=== PATIENT | male | born 1995 | race Caucasian/White ===

== ENCOUNTER 2023-06-13 18:48 | Emergency (ER) | payer OTHER, SELFPAY ==
--- NOTE | 2023-06-13 18:49 | ED_ITS ---
HPI - URI/Sore Throat General Chief Complaint: Upper Respiratory Infection Stated Complaint: Cough Time Seen by Provider: 06/13/23 18:48 Source: patient Mode of arrival: ambulatory Limitations: no limitations History of Present Illness HPI Narrative: Patient is a 28-year-old male who presents with 3 weeks of progressive cough. Patient states he has also had congestion and drainage making cough worse at night the last 2 nights. Denies any fever, chills, nausea, vomiting, diarrhea. Patient has been taking allergy medicine daily. Related Data Home Medications Medication Instructions Recorded Confirmed cetirizine 10 mg tablet 10 mg PO DAILY 06/13/23 06/13/23 Allergies Allergy/AdvReac Type Severity Reaction Status Date / Time Penicillins AdvReac Mild Hives Verified 06/13/23 19:02 Review of Systems Review of Systems: All systems reviewed & are unremarkable except as noted in HPI and below Constitutional: Constitutional: Denies body ache(s), Denies chills, Denies fatigue, Denies fever(s), Denies headache(s), Denies malaise and Denies weakness Eyes: Eyes: Denies blurry vision, Denies itchy eyes and Denies loss of vision ENT: Denies otalgia, Denies headache(s), Reports nasal congestion, Denies sinus pain and Denies sore throat Cardiovascular: Cardiovascular: Denies chest pain, Denies irregular heart rhythm and Denies dyspnea Respiratory: Respiratory: Reports cough and Denies dyspnea Gastrointestinal: Gastrointestinal: Denies abdominal pain, Denies diarrhea, Denies nausea and Denies vomiting Musculoskeletal: Musculoskeletal: Denies back pain, Denies myalgias and Denies arthralgias Integumentary/Breasts: Skin/Breast: Denies pruritus and Denies rash Neurologic: Denies headache(s), Denies loss of vision and Denies weakness Psychiatric: Psychiatric: Reports no additional psychiatric complaints Endocrine: Endocrine: Denies fatigue Allergic/Immunologic: Allergic/Immunologic: Denies itchy eyes PMFSH Comments At time of signature, agree with nursing past medical, surgical, social and family history. There is no relevant family history pertinent to the presenting complaint. Exam Const: General: cooperative, healthy appearing, comfortable, no acute distress and well nourished Nutritional Appearance: well nourished Orientation/consciousness: patient oriented x3 Limitations: no limitations HENMT: Head: normal to inspection, normocephalic and atraumatic Ears: hearing grossly normal bilaterally, external ears normal, TM's normal bilaterally, EAC's normal and no periauricular adenopathy Face/Nose/Sinus: Normal external nose present, Abnormal mucous membranes and turbinates present erythematous bilateral and diffuse, normal facial exam, sinuses nontender and face symmetric Face and sinus: normal facial exam, sinuses nontender and face symmetric Mouth: Yes Normal oral and palatal mucosa present, Yes lip normal, Yes tongue normal, Yes Normal salivary glands and ducts present, Yes oropharynx normal and Yes moist mucous membranes Teeth and gingiva: dentition normal Throat: posterior oropharynx normal, tonsils normal and uvula midline Eyes: General: appearance normal, both eyes and all related structures Alignment and Position: alignment normal and position normal Periorbital: periorbital findings normal Eyelids: eyelids normal Pupils: Equal, round and reactive pupils present Neck: Neck: normal visual inspection, full ROM, no lymphadenopathy and supple Chest: Chest palpation & inspection: normal inspection of the chest and normal palpation of entire chest wall Resp: Effort & Inspection: normal respiratory effort and able to speak in complete sentences Auscultation: clear to auscultation bilaterally, no crackles, no rales, no rhonchi and no wheezes Cardio: Rate: regular rate Rhythm: regular rhythm Heart sounds: S1 normal heart sound present and S2 normal heart sound present GI: Inspection: normal to inspection Skin: General skin exam: normal color and no rashes or lesions noted Neuro: General: patient oriented x3 and moves all extremities Cranial nerves: Yes Equal, round and reactive pupils present Speech: normal speech Gait exam (Neuro): Normal gait present Extrem: General: normal to inspection, full ROM and no edema Psych: Appearance: grossly normal and well kempt Mental Status: mental status grossly normal Speech and movement: Normal speech and movement present Affect: normal affect Attitude: cooperative Thought process: Normal thought process present Course Course Emergency Course: Patient is aware of diagnosis, understands and agrees to treatment plan. Anticipatory guidance given. Patient agrees to follow-up as directed and is aware of reasons to seek care at the emergency department. Portions of this record may have been created with voice recognition software Level of Care: Express Care Visit Vital Signs Vital signs: Reviewed MDM - URI/Sore Throat MDM Narrative Medical decision making narrative: Discharge instructions reviewed with patient, as well as provided in writing per nursing staff. The instructions also include specific and strict return/GO TO THE ER as well as f/u information. All questions have been answered, and the patient deny any further questions with discharge and discharge plan. Differential diagnosis considered: Flores virus, strep pharyngitis, allergic rhinitis, upper respiratory tract infection, sinusitis, rhinosinusitis, naso pharyngitis. viral pharyngitis, otitis media, otitis externa, otitis effusion, foreign body, cerumen impaction, viral syndrome, and influenza.? Exam findings show no acute concerns or changes; patient is non-toxic appearing and is in no distress.? Patient is appropriate for outpatient treatment and follow-up.? Medical Records Attestation: I reviewed the patient's medical records. Discharge Plan Discharge Clinical Impression: Upper respiratory infection with cough and congestion, Bronchitis Patient Disposition: Home, Self-Care Condition: Stable Instructions: Upper Respiratory Infection (ED), Acute Bronchitis (ED) Additional Instructions: Take antibiotic as prescribed. Take steroids in the morning with food. Use Tessalon Perles as needed for cough. Use inhaler with spacer as needed. Other symptomatic treatments include: -Alternate Tylenol and Motrin per package directions for fever or pain. -Antihistamine medication such as Benadryl at night and Zyrtec/Claritin/Marquita during the day can help improve symptoms. -Use Flonase twice a day for 5 days then daily to help reduce the inflammation and dry up your sinuses. -You can also use Sudafed or Mucinex. Be sure to drink plenty of water with these medications at least 8 ounces with every dose and it is important to drink 8 to 10 glasses of water per day. Water is a natural decongestant -Eat and drink things that are easy to swallow, like tea or soup, or popsicles. -Oral rinses such as: Salt water gargles and/or may use topical anesthetic (eg. Chloraseptic spray) or lozenges to relieve dryness or throat pain). -Frequent hand washing or hand biomass power plant superintendent is one of the best ways to prevent spread of infection. -Using a vaporizer or humidifier at night will also help thin secretions and help with coughing up phlegm. -Follow up with primary care provider in 3-5 days if condition is not improving - For new or worsening symptoms go directly to the nearest ER If you are having a hard time finding a physician please call our [facility] liaison at [phone]. Prescriptions: New azithromycin 250 mg tablet See Rx Instructions .ROUTE .COMPLEX Qty: 6 0RF Rx Instructions: For 250 mg dose pack: take 500 mg today (day 1), then 250 mg for 4 days (days 2-5) prednisone 20 mg tablet 40 mg PO DAILY 5 Days Qty: 10 0RF benzonatate 100 mg capsule 100 mg PO BID PRN (Reason: cough) Qty: 14 0RF albuterol sulfate 90 mcg/actuation HFA aerosol inhaler 2 puff inhalation QID PRN (Reason: shortness of breath or wheezing) Qty: 6.7 0RF (DME) Aerochamber MV Spacer See Rx Instructions .Route Qty: 1 0RF Rx Instructions: As directed No Action cetirizine 10 mg Tablet 10 mg PO DAILY Follow-up/Referrals: Donald Guzman MD [Physician] - 3 Days UNKNOWN,DOCTOR [Non-Staff] - Time of Disposition: 19:14
[2023-06-13 19:00] VITALS: BP 127/61; PULSE 55; RESP 16; TEMP 36.4; O2SAT 99
== END 2023-06-13 19:15 | disposition home or self-care (01) ==
PROVIDERS: Emergency Provider Nurse Practitioner Family
DX: J06.9 Acute upper respiratory infection, unspecified (principal); J40 Bronchitis, not specified as acute or chronic; Z86.16 Personal history of COVID-19
CPT/HCPCS: 99213; G0463

== ENCOUNTER 2023-06-18 13:31 | Emergency (ER) | payer OTHER, SELFPAY ==
[2023-06-18 13:40] VITALS: BP 164/74; PULSE 70; RESP 16; TEMP 36.4; O2SAT 100
[2023-06-18 13:42] VITALS: BP 164/74; PULSE 70; RESP 16; TEMP 36.4; O2SAT 100
--- NOTE | 2023-06-18 13:45 | ED.GENADULT ---
HPI - General Adult General Chief complaint: Upper Respiratory Infection Stated complaint: Headache,Nausea,Vomiting,Diarrhea,Abdominal Pain Time Seen by Provider: 06/18/23 13:45 Source: patient and RN notes reviewed Mode of arrival: ambulatory Limitations: no limitations History of Present Illness HPI narrative: 28-year-old male presented for complaint of nausea, vomiting, and diarrhea. Onset yesterday. Patient returned from [place] last night. Endorses his has had similar symptoms over the past 3 days. Denies fever or blood in stool. Has not had any treatment for symptoms yet. Denies shortness of breath, wheezing, or lethargy. Related Data Home Medications Medication Instructions Recorded Confirmed cetirizine 10 mg tablet 10 mg PO DAILY 06/13/23 06/13/23 Allergies Allergy/AdvReac Type Severity Reaction Status Date / Time Penicillins Allergy Mild Hives Verified 06/18/23 13:41 Review of Systems Review of Systems: CONSTITUTIONAL: Denies body aches, fever, chills ENT: Denies rhinorrhea, congestion CARDIOVASCULAR: Denies chest pain, palpitations, or edema. RESPIRATORY: Denies cough or dyspnea. GASTROINTESTINAL: Endorses nausea, vomiting, diarrhea. Denies abdominal pain, hematochezia, melena, hematemesis GENITOURINARY: Denies dysuria, hematuria, or CVA tenderness. SKIN: Denies rash, itching, or wounds. MUSCULOSKELETAL: Denies back pain, joint pain, or myalgia. NEUROLOGIC: Denies headache, numbness, tingling, or weakness. All systems reviewed & are unremarkable except as noted in HPI and below PMFSH Comments At time of signature, I have reviewed and agree with nursing past medical, surgical, social and family history unless otherwise noted. Please see nursing chart for further information. There is no relevant family history pertinent to the presenting complaint Exam Narrative: GENERAL: mildly ill-appearing, and in no acute distress. EYES: EOMI. Conjunctivae normal. ENT: Mucous membranes pink and moist. CHEST: No respiratory distress. Clear to auscultation. HEART: Regular rate and rhythm. No murmur appreciated. Normal peripheral pulses. ABDOMEN: abd soft, nondistended, normal active bowel sounds. Nontender abdomen: No guarding, rebound tenderness, asymmetry EXTREMITIES: Normal range of motion. No edema. SKIN: Warm, dry, no rash. Capillary refill normal. Normal skin turgor. NEURO: No focal deficits. Alert and oriented x3. PSYCH: Normal affect. Course Course Emergency Course: Patient is aware of diagnosis, understands and agrees to treatment plan. Anticipatory guidance given. Patient agrees to follow-up as directed and is aware of reasons to seek care at the emergency department. Portions of this record may have been created with voice recognition software Level of Care: Express Care Visit Vital Signs Vital signs: Vital Signs Temperature 97.5 F L 06/18/23 13:40 Pulse Rate 70 06/18/23 13:40 Respiratory Rate 16 06/18/23 13:40 Blood Pressure 164/74 H 06/18/23 13:40 Pulse Oximetry 100 06/18/23 13:40 Oxygen Delivery Room Air 06/18/23 13:40 Temperature 97.5 F L 06/18/23 13:42 Pulse Rate 70 06/18/23 13:42 Respiratory Rate 16 06/18/23 13:42 Blood Pressure 164/74 H 06/18/23 13:42 Pulse Oximetry 100 06/18/23 13:42 Oxygen Delivery Room Air 06/18/23 13:42 Medical Decision Making MDM Narrative Medical decision making narrative: POS influenza. Pt is in stable condition, tolerating PO. Pt appears appropriate for outpt treatment and close f/u. Discussed physical exam findings. Advised supportive measures and signs/symptoms to go to the ER. Patient will be discharged with strict return precautions and follow up with PCP within 12-24 hours for further evaluation. Patient understands that this still may have an early presentation of an emergent medical condition such as appendicitis that will require a recheck. Differential Diagnosis Differentia
== END 2023-06-18 14:33 | disposition home or self-care (01) ==
PROVIDERS: Emergency Provider Nurse Practitioner Family
DX: J10.1 Influenza due to other identified influenza virus with other respiratory manifestations (principal); Z20.822 Contact with and (suspected) exposure to COVID-19
CPT/HCPCS: 87426; 87804; 99213; G0463

== ENCOUNTER 2024-01-13 18:50 | Emergency (ER) | payer OTHER, SELFPAY ==
[2024-01-13 19:01] VITALS: BP 136/74; PULSE 62; RESP 18; TEMP 36.4; O2SAT 98
--- NOTE | 2024-01-13 19:05 | ED_ITS ---
HPI - Nausea/Vomiting/Diarrhea General Chief complaint: Nausea/Vomiting/Diarrhea Stated complaint: headache / nausea / diarrhea Time Seen by Provider: 01/13/24 18:53 Source: patient Mode of arrival: ambulatory Limitations: no limitations History of Present Illness HPI Narrative: patient is a 28-year-old male who presents headache, nausea, vomiting and diarrhea that started yesterday while at work. Patient states he has been working [id number] 16 hour shifts and feels run down. Patient has taken Tylenol and ibuprofen with no relief. Denies any fever, chills, congestion, sore throat, cough, ear pain. Related Data Allergies Allergy/AdvReac Type Severity Reaction Status Date / Time Penicillins Allergy Mild Hives Verified 01/13/24 19:10 Review of Systems Review of Systems: All systems reviewed & are unremarkable except as noted in HPI and below Constitutional: Constitutional: Denies body ache(s), Denies chills, Denies fatigue, Denies fever(s), Reports headache(s), Denies malaise and Denies weakness Eyes: Eyes: Denies blurry vision, Denies irritation and Denies loss of vision ENT: Denies otalgia, Denies headache(s), Denies nasal discharge, Denies sinus pain and Denies sore throat Cardiovascular: Cardiovascular: Denies chest pain, Denies irregular heart rhythm and Denies dyspnea Respiratory: Respiratory: Denies dyspnea Gastrointestinal: Gastrointestinal: Denies abdominal pain, Denies melena, Denies hematochezia, Reports diarrhea, Reports nausea and Reports vomiting Musculoskeletal: Musculoskeletal: Denies back pain, Denies myalgias and Denies arthralgias Integumentary/Breasts: Skin/Breast: Denies pruritus and Denies rash Neurologic: Denies headache(s), Denies loss of vision and Denies weakness Psychiatric: Psychiatric: Reports no additional psychiatric complaints Endocrine: Endocrine: Denies fatigue PMFSH Comments At time of signature, agree with nursing past medical, surgical, social and family history. There is no relevant family history pertinent to the presenting complaint. Exam Const: General: cooperative, healthy appearing, comfortable, no acute distress and well nourished Nutritional Appearance: well nourished Orientation/consciousness: patient oriented x3 Limitations: no limitations HENMT: Head: normal to inspection, normocephalic and atraumatic Ears: hearing grossly normal bilaterally, external ears normal, TM's normal bilaterally and EAC's normal Face/Nose/Sinus: Normal external nose present, normal facial exam and face symmetric Face and sinus: normal facial exam, sinuses nontender and face symmetric Mouth: Yes Normal oral and palatal mucosa present, Yes lip normal and Yes tongue normal Teeth and gingiva: dentition normal and gingiva normal Throat: posterior oropharynx normal, tonsils normal and uvula midline Eyes: General: appearance normal, both eyes and all related structures Alignment and Position: alignment normal and position normal Periorbital: periorbital findings normal Eyelids: eyelids normal Pupils: Equal, round and reactive pupils present EOM: EOMs intact bilaterally Neck: Neck: normal visual inspection, full ROM and supple Chest: Chest palpation & inspection: normal inspection of the chest Resp: Effort & Inspection: normal respiratory effort and able to speak in complete sentences Auscultation: clear to auscultation bilaterally Cardio: Rate: regular rate Rhythm: regular rhythm Heart sounds: S1 normal heart sound present and S2 normal heart sound present GI: Inspection: normal to inspection GI Palp: No abdominal tenderness, Yes Soft to palpation, No Tenderness to palpation present (GI) and No Guarding due to palpation present (GI) Skin: General skin exam: normal color and no rashes or lesions noted Neuro: General: patient oriented x3 and moves all extremities Cranial nerves: Yes Equal, round and reactive pupils present Speech: normal speech Gait exam (Neuro): Normal gait present Extrem: General: normal to inspection, full ROM and no edema Psych: Appearance: grossly normal and well kempt Mental Status: mental status grossly normal Speech and movement: Normal speech and movement present Affect: normal affect Attitude: cooperative Thought process: Normal thought process present Course Course Emergency Course: Patient is aware of diagnosis, understands and agrees to treatment plan. Anticipatory guidance given. Patient agrees to follow-up as directed and is aware of reasons to seek care at the emergency department. Portions of this record may have been created with voice recognition software Level of Care: Express Care Visit Vital Signs Vital signs: Vital Signs Temperature 36.4 C 01/13/24 19:01 Pulse Rate 62 01/13/24 19:01 Respiratory Rate 18 01/13/24 19:01 Blood Pressure 136/74 01/13/24 19:01 Pulse Oximetry 98 01/13/24 19:01 Oxygen Delivery Room Air 01/13/24 19:01 Temperature 36.4 C 01/13/24 19:01 Pulse Rate 62 01/13/24 19:01 Respiratory Rate 18 01/13/24 19:01 Blood Pressure 136/74 01/13/24 19:01 Pulse Oximetry 98 01/13/24 19:01 Oxygen Delivery Room Air 01/13/24 19:01 Reviewed MDM - Nausea/Vomiting/Diarrhea MDM Narrative Medical decision making narrative: Exam findings show no acute concerns or changes; patient is non-toxic appearing and is in no distress.? Patient is appropriate for outpatient treatment and follow-up. Discharge instructions reviewed with patient, as well as provided in writing per nursing staff. The instructions also include specific and strict return/GO TO THE ER as well as f/u information. All questions have been answered, and the patient deny any further questions with discharge and discharge plan. Differential Diagnosis Differential diagnosis: Likely traveler's diarrhea, gastroenteritis, clostridium difficile infection, drug-induced nausea and vomiting, dehydration and other ( Influenza, covid) Medical Records Attestation: I reviewed the patient's medical records. Lab Data Attestation: I reviewed the patient's lab results. Labs: Lab Results 01/13/24 Range/Units 19:22 POC Influenza A Ag Negative (Negative) POC Influenza B Ag Negative (Negative) POC SARS CoV-2 Ag Negative (Negative) Discharge Plan Discharge Clinical Impression: Gastroenteritis Patient Disposition: Home, Self-Care Condition: Stable Instructions: Gastroenteritis (ED) Additional Instructions: Stay hydrated. Take small sips of fluid containing electrolytes frequently(Body [place], Gatorade, Powerade, liquid IV). Eat small meals that her very bland including bananas, applesauce, rice, toast, boiled or grilled chicken, soup. Do not eat anything fried, spicy or overly acidic. You should go to the hospital if you experience return of persistent nausea and vomiting that does not resolve and does not allow you to tolerate any food or fluids, persistent fevers for greater than 2-3 more days, increasing abdominal pain that persists despite medications, persistent diarrhea, dizziness, syncope (fainting), or for any other concerns. For pain, you may take: Tylenol 650-1000mg by mouth every 4-6 hours. Do not exceed 4000mg in 24 hours. Advil (Ibuprofen) 600 mg by mouth every 6 hours. Do not exceed 2400mg in 24 hours. 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
[2024-01-13 19:24] LABS: EDCOVIDSCREEN Negative (Negative); EDINFLUASCREEN Negative (Negative); EDINFLUBSCREEN Negative (Negative)
== END 2024-01-13 19:33 | disposition home or self-care (01) ==
PROVIDERS: Emergency Provider Nurse Practitioner Family
DX: K52.9 Noninfective gastroenteritis and colitis, unspecified (principal); Z20.822 Contact with and (suspected) exposure to COVID-19; Z86.16 Personal history of COVID-19
CPT/HCPCS: 87426; 87804; 99213; G0463

== ENCOUNTER 2024-06-18 08:07 | Emergency (ER) | payer OTHER, SELFPAY ==
--- OUTSIDE RECORDS SUMMARY | 2024-06-18 08:11 | XMS_ITS ---
Author Organization Unknown Address [address], [place] [id number] Phone Care Team Providers Care Soap Maker Name Role Phone RAVEN Spicer DO Attending Unavailable HAROON CATES NP Provider Of Care Unavai lable Immunization Immunization Date Status Additional Notes Code Code System Influenza, live, trivalent, intranasal 12/23/2012 Completed 111 CVX Tdap 06/06/2022 Completed 115 CVX Influenza, split virus, quadrivalent, PF 11/29/2013 Completed 150 CVX COVID-19 vaccine, vector-nr, rS-Ad26, PF, 0.5 mL 05/31/2020 Completed 212 CVX Social History Type Status Start Date End Date Code Code Syst em Sex Male Vital Signs Vital Sign Value Unit Branson Value Branson Unit Date/Time Recent/Initial? Code Code System Body Mass Index 44.68 kg/m2 04/24/2024 11:21 Initial 90638 -5 LOINC Systolic Blood Pressure 118 mm[Hg] 04/24/2024 11:21 Initial 8480- 6 LOINC Diastolic Blood Pressure 82 mm[Hg] 04/24/2024 11:21 Initial 8462- 4 LOINC Body Surface Area 2.87 m2 04/24/2024 11:21 Initial 3140- 1 LOINC Height 187.960 0 cm 74.00 in 04/24/2024 11:21 Initial 8302- 2 LOINC O2 Saturation 98 % 2024 11:21 Initial 33379 -5 LOINC Pulse 63.0 /min 04/24/2024 11:21 Initial 8867- 4 LOINC Respiration 22 /min 04/25/19 11:21 Initial 9279- 1 LOINC Temperature 36.6 Adia 97.8 F 04/25/19 11:21 Initial 8310- 5 [facility] Weight 157.85 kg 348.00 lbs 04/24/2024 11:21 Initial 62171 -7 [facility] Medications Medication Start Date End Date Route Frequency Dose Code Code System Medication Instructions Home Meds ZyrTEC 10MG Oral Tablet 04/24/2024 Unknown ORAL DAILY 1 TABLET RxNorm 1 TABLET ORAL DAILY Salicylic Acid 6% Topical application Shampoo 04/24/2024 Unknown ORAL DAILY 1 TABLET 796516 RxNorm Apply shampoo to wet scalp. Work into lather than rinse off. Use 3 times weekly. Zepbound Pen 2.5 MG/0.5 ML Subcutaneous Solution 04/24/2024 Unknown SUBCUTANEA OUS WEEKLY 2.5 MILLIGRAMS 835672 6 RxNorm 2.5 MILLIGRAMS SUBCUTANEAOU S WEEKLY Zofran 4MG Oral Tablet 04/24/2024 Unknown ORAL EVERY 6HR NEEDED 1 TABLET 301376 RxNorm 1 TABLET ORAL EVERY 6HR NEEDED for nausea Hospital Discharge Instructions Should you have any questions prior to discharge, please contact a member of your healthcare team. If you have left the hospital and have any questions, please contact your primary care physician. Reason For Referral No Data Found Allergies and Adverse Reactions Allergy Substance Reaction Severity Start Date Concern Status Co de Code System PENICILLIN hives (SNOMED-CT: null) Active Plan of Treatment Established Patient 30 min 06/26/2024 Personal Care Team Section Performer Name Performer Role Active Date Inactive Da toney
--- OUTSIDE RECORDS SUMMARY | 2024-06-18 08:11 | XMS_ITS | Referral Summary ---
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 Dry dressing applied to area followed by Alexandra for reinforcement. Explained to patient that they cannot get the area wet for the next 48 hours. Explained to patient not to put any type of topical creams or ointments on the area as it will decrease healing. Keep area clean. Oral antibiotic prescribed this time. Return for follow-up appointment for suture removal 10 days depending on healing process. If there is any increase noted erythema,drainage, or fever patient to return to [place] further evaluated. 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 Care Teams Cotton Farmworker Relationship Specialty Start Date End Date Rita Woods MD [address] [place] [address] PCP - General 10/14/07
--- OUTSIDE RECORDS SUMMARY | 2024-06-18 08:11 | XMS_ITS | Clinical Summary ---
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 Gender Identity Not on file Sexual Orientation Not on file Obstetrics History Last Filed Vital Signs Vital Sign Reading [...] 05/12/2022 4:30 PM CDT Plan of Treatment Health Maintenance Due Date Last Done Comments Depression Screening 1997 Hepatitis C Screening 1997 Regular Well Visit/Exam 18-64 06/09/2015 Covid-19 Vaccine ( season) 2023 05/31/2020 Influenza Vaccine (Season Ended) 2024 11/29/2013, 12/23/2012, 12/15/2011 DTaP/Tdap/Td Vaccine (8 - Td or Tdap) 06/06/2032 06/06/2022, 10/20/2011, 10/25/2002, Additional history exists Hepatitis B Screening Completed 03/20/1998 , 1997, 1997 Varicella Vaccines Completed 10/20/2011, 07/08/1998 HPV Vaccines Completed 08/23/2015, 10/20/2011 Pneumococcal vaccine <65 Aged Out No longer eligible based on patient's age to complete this topic Insurance [facility] Care Teams Safety 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
--- NOTE | 2024-06-18 08:14 | ED.GENADULT ---
HPI - General Adult General Chief complaint: Upper Respiratory Infection Stated complaint: sore throat and ear pain Time Seen by Provider: 06/18/24 08:14 Source: patient Mode of arrival: ambulatory Limitations: no limitations History of Present Illness HPI narrative: 29-year-old male patient presents to [facility] with complaints of sore throat, ear pain and sinus congestion for the past 5 days. Denies any fevers, body aches or chills. Patient states he has been taking some [id number]-[id number] cold and flu medication and NyQuil. Patient states he has had taken some Zyrtec at times. Patient denies any chest pain or shortness of breath. Patient states he does have coughing at times but nothing consistent. Denies any nausea, vomiting or diarrhea. Related Data Home Medications ?Medication ?Instructions ?Recorded ?Confirmed ?Last Taken ?Type cetirizine 10 mg tablet (24Hour 10 mg PO DAILY PRN allergy symptoms 06/18/24 06/18/24 Unknown History Allergy) tirzepatide (weight loss) 2.5 mg subcut 06/18/24 Unknown History mg/0.5 mL subcutaneous pen injector (Zepbound) Allergies Allergy/AdvReac Type Severity Reaction Status Date / Time Penicillins Allergy Mild Hives Verified 06/18/24 08:18 Review of Systems Review of Systems: CONSTITUTIONAL: Denies fever, chills, or sweats. EYES: Denies visual changes, redness, or discharge. ENT: Positive rhinorrhea, congestion, sore throat, and bilateral otalgia. CARDIOVASCULAR: Denies chest pain, palpitations, or edema. RESPIRATORY: positive cough denies dyspnea. GASTROINTESTINAL: Denies abdominal pain, nausea, vomiting, or diarrhea. GENITOURINARY: Denies dysuria or hematuria. SKIN: Denies rash or itching. MUSCULOSKELETAL: Denies back pain, joint pain, or myalgia. NEUROLOGIC: Denies headache, numbness, or weakness. PSYCHIATRIC: Denies anxiety or depression. PMFSH Past Medical History Medical History (Updated 06/18/24 @ 08:48 by LOAN Francisco) No significant past medical history Comments At the time of my signature I agree with nursing past medical history, surgical, social, and family history. There is no relevant family history pertinent to the presenting complaint. Exam Narrative: GENERAL: Well-appearing, well-nourished, and in no acute distress. HEAD: Normocephalic, atraumatic. EYES: PERRLA and EOMI. ENT: Nares clear, no rhinorrhea or epistaxis. Mucous membranes moist. posterior pharynx with erythema and edema noted bilaterally. No exudates noted. Tonsillar enlargement noted to 1+. Bilateral TMs do appear cloudy but no erythema present. NECK: Supple. No lymphadenopathy CHEST: Clear to auscultation. No respiratory distress. HEART: Regular rate and rhythm. No murmur heard. Normal peripheral pulses. ABDOMEN: Soft, nontender, nondistended, normal active bowel sounds. EXTREMITIES: Normal range of motion. No edema. SKIN: Warm, dry, no rash. NEURO: No focal deficits. Alert and oriented x3. Course Course Level of Care: Express Care Visit Vital Signs Vital signs: Vital Signs Temperature 36.7 C 06/18/24 08:17 Pulse Rate 55 L 06/18/24 08:17 Respiratory Rate 18 06/18/24 08:17 Blood Pressure 136/73 06/18/24 08:17 Pulse Oximetry 100 06/18/24 08:17 Oxygen Delivery Room Air 06/18/24 08:17 Temperature 36.7 C 06/18/24 08:17 Pulse Rate 55 L 06/18/24 08:17 Respiratory Rate 18 06/18/24 08:17 Blood Pressure 136/73 06/18/24 08:17 Pulse Oximetry 100 06/18/24 08:17 Oxygen Delivery Room Air 06/18/24 08:17 vital signs reviewed. Medical Decision Making MDM Narrative Medical decision making narrative: Discussed with patient that his point of care testing for influenza, COVID and strep all came back negative. Discussed with him we will send the strep swab to the lab for culture and if it does come back positive we will call him in antibiotics at that time. Discussed with patient he can continue taking that over to the counter medications he has been taking and I would also recommend that he add Flonase to help decrease the fluid behind the ears. Discussed with patient that he can do warm salt water gargles hot tea and honey to help with the throat pain and would also recommend using a humidifier by his bed at night. Patient verbalized understanding denies any other questions or concerns at this time. Differential Diagnosis Differential Diagnosis: Differential diagnosis: Allergic rhinitis, chronic sinusitis, tonsillitis, acute sinusitis, infectious mononucleosis, seasonal influenza, pertussis, diphtheria, meningococcal disease, viral syndrome, viral bronchitis, RSV, COVID-19 Vital Signs Vital Signs: Vital Signs Temperature 36.7 C 06/18/24 08:17 Pulse Rate 55 L 06/18/24 08:17 Respiratory Rate 18 06/18/24 08:17 Blood Pressure 136/73 06/18/24 08:17 Pulse Oximetry 100 06/18/24 08:17 Oxygen Delivery Room Air 06/18/24 08:17 Temperature 36.7 C 06/18/24 08:17 Pulse Rate 55 L 06/18/24 08:17 Respiratory Rate 18 06/18/24 08:17 Blood Pressure 136/73 06/18/24 08:17 Pulse Oximetry 100 06/18/24 08:17 Oxygen Delivery Room Air 06/18/24 08:17 Lab Data Labs: Lab Results 06/18/24 06/18/24 Range/Units 08:34 08:40 POC Influenza A Ag Negative (Negative) POC Influenza B Ag Negative (Negative) POC SARS CoV-2 Ag Negative (Negative) POC Grp A Strep Screen Negative (Negative) Critical Care Time Critical Care Time Critical Care Time: No Discharge Plan Discharge Clinical Impression: Acute viral pharyngitis, Viral URI Patient Disposition: Home Condition: Stable Instructions: Antibiotic Form, Pharyngitis (ED) Additional Instructions: Viral illness may last between 7-12days; antibiotic is NOT recommended at this time. Recommend antihistamine such as Benadryl at night time and Claritin/Zyrtec/Marquita during the day Cough syrup may cause drowsiness; avoid driving or take it at night time. Also, recommend symptomatic treatment includes: rest, fluids, and increase humidity of the air at home. Recommend Acetaminophen or nonsteroidal anti-inflammatory agents (NSAIDs) as directed in the bottle to reduce fever and/pain/headache. Avoid smoking/second-hand smoke. Limit visits to areas with large crowds. Please schedule a follow-up visit with your personal physician for further evaluation and treatment within 3-5days. Including recheck and discussion of your blood pressure. If your symptoms persist, change or worsen significantly before you can contact your personal physician then please, without delay, go to the emergency department for further evaluation. Patient Language: Maldivian Prescriptions: No Action Zepbound 2.5 mg/0.5 mL pen injector SUBCUT cetirizine [24Hour Allergy] 10 mg tablet 10 mg PO DAILY PRN (Reason: allergy symptoms) Follow-up/Referrals: UNKNOWN,DOCTOR [Primary Care Provider] - Stand Alone Forms: Work/School Release IP Time of Disposition: 08:47
--- OUTSIDE RECORDS SUMMARY | 2024-06-18 08:14 | XMS_ITS ---
Author Organization Unknown Address [address], [place] [id number] Phone Care Team Providers Care Diagnostics Sales Developer Name Role Phone RAVEN Spicer DO Attending [...] Male Vital Signs Vital Sign Value Unit [place] Value [place] Unit Date/Time Recent/Initial? Code Code System Body Mass Index 44.68 kg/m2 04/24/2024 11:21 Initial 90245 -5 LOINC Systolic Blood Pressure 118 mm[Hg] 04/24/2024 11:21 Initial 8480- 6 LOINC Diastolic Blood Pressure 82 mm[Hg] 04/24/2024 11:21 Initial 8462- 4 LOINC Body Surface Area 2.87 m2 04/24/2024 11:21 Initial 3140- 1 LOINC Height 187.960 0 cm 74.00 in 04/24/2024 11:21 Initial 8302- 2 LOINC O2 Saturation 98 % 2024 11:21 Initial 02741 -5 LOINC Pulse 63.0 /min 04/24/2024 11:21 Initial 8867- 4 LOINC Respiration 22 /min 04/25/19 11:21 Initial 9279- 1 LOINC Temperature 36.6 Adia 97.8 F 04/25/19 11:21 Initial 8310- 5 [facility] Weight 157.85 kg 348.00 lbs 04/24/2024 11:21 Initial 62176 -7 [facility] Medications Medication Start Date End Date Route Frequency Dose Code Code System Medication Instructions Home Meds ZyrTEC 10MG Oral Tablet 04/24/2024 Unknown ORAL DAILY 1 TABLET RxNorm 1 TABLET ORAL DAILY Salicylic Acid 6% Topical application Shampoo 04/24/2024 Unknown ORAL DAILY 1 TABLET 024658 RxNorm Apply shampoo to wet scalp. Work into lather than rinse off. Use 3 times weekly. Zepbound Pen 2.5 MG/0.5 ML Subcutaneous Solution 04/24/2024 Unknown SUBCUTANEA OUS WEEKLY 2.5 MILLIGRAMS 757507 6 RxNorm 2.5 MILLIGRAMS SUBCUTANEAOU S WEEKLY Zofran 4MG Oral Tablet 04/24/2024 Unknown ORAL EVERY 6HR NEEDED 1 TABLET 296316 RxNorm 1 TABLET ORAL EVERY 6HR NEEDED [...]
[2024-06-18 08:17] VITALS: BP 136/73; PULSE 55; RESP 18; TEMP 36.7; O2SAT 100
[2024-06-18 08:36] LABS: EDSTREPNEGPOS1 Negative (Negative)
[2024-06-18 08:42] LABS: EDCOVIDSCREEN Negative (Negative); EDINFLUASCREEN Negative (Negative); EDINFLUBSCREEN Negative (Negative)
== END 2024-06-18 08:50 | disposition home or self-care (01) ==
PROVIDERS: Emergency Provider Nurse Practitioner Family
DX: J02.8 Acute pharyngitis due to other specified organisms (principal); J06.9 Acute upper respiratory infection, unspecified; Z20.822 Contact with and (suspected) exposure to COVID-19
CPT/HCPCS: 87081; 87426; 87804; 87880; 99213; G0463